=== PATIENT | female | born 1995 | race Caucasian/White ===

== ENCOUNTER 2016-06-19 21:34 | Emergency (ER) | payer BC ==
[~2016-06-19] VITALS: Ht 157.5 cm; Wt 61.0 kg
[2016-06-19 21:36] VITALS: BP 116/67; PULSE 77; RESP 16; TEMP 98.7; O2SAT 98
[2016-06-19] MEDS ORDERED: PROPARACAINE HCL 0.5% OPHT SOLN 15 ML BTL EACH EYE ONE (22:00)
[2016-06-19] MEDS ORDERED: NITR1CAP37 PO (22:07)
--- NOTE | 2016-06-19 22:10 | PD ---
HPI Chief Complaint: Eye Problems/Injury Time Seen by Provider: 21:58 Travel History International Travel<30 days: No Contact w/Intl Traveler<30days: No Traveled to known affect area: No History of Present Illness HPI 20-year-old female presents for evaluation of left eye discomfort. The patient reports that she wears contacts when she went to put her contacts in this morning left one felt like there is a scratch on it. She were to all day and began having increased pain, cloudiness and foreign body sensation in the left eye. She has since removed her contacts. No problems with the right eye. She does not wear contacts at night. She has no other complaints at this time. PFSH Past Medical History ?: Not LMP: LAST WEEK Social History Alcohol Use: Yes Tobacco Use: No Allergies-Medications (Allergen,Severity, Reaction): Coded Allergies: Sulfa (Verified Allergy, Intermediate, EDEMA AND HIVES, 06/19/16) Reported Meds & Prescriptions Reported Meds & Active Scripts Active Tylenol-Codeine #3 (Acetaminophen-Codeine) 300-30 mg Tab 1 Tab PO Q4H PRN Tobrex Opth Oint (Tobramycin Sulfate) 0.3 % Oint 1 Applic LEFT EYE QID 7 Days Reported Nitrofurantoin Macrocrystal 50 Mg Cap 50 Mg PO BID Review of Systems Eyes: Positive: Redness, Foreign Body Sensation, Pain, Tearing, Visual changes Physical Exam Narrative GENERAL: Well-developed well-nourished female in no acute distress SKIN: Warm and dry. HEAD: Atraumatic. Normocephalic. EYES: Pupils equal and round reactive to light extraocular muscles are intact. Mild conjunctival injection left eye. Slit lamp reveals faint corneal abrasion. There is no cell or flare in the anterior chamber. No hyphema, no hypopyon. The upper eyelid was everted and there is no evidence of retained foreign body. ENT: No nasal bleeding or discharge. Mucous membranes pink and moist. NECK: Trachea midline. No JVD. Data Data Last Documented VS Vital Signs Date Time Temp Pulse Resp B/P Pulse Ox O2 Delivery O2 Flow Rate FiO2 06/19/16 22:07 16 06/19/16 21:36 98.7 77 116/67 98 Room Air Orders Proparacaine 0.5% Opth Soln (Alcaine 0.5 (06/19/16 22:00) Proparacaine 0.5% Opth Soln (Alcaine 0.5 (06/19/16 22:15) Acetamin-Codeine 300-30 Mg (Tylenol-Code (06/19/16 22:45) Tobramycin 0.3% Opth Oint (Tobrex 0.3% O (06/19/16 22:45) MDM Medical Decision Making Medical Screen Exam Complete: Yes Emergency Medical Condition: Yes Medical Record Reviewed: Yes Differential Diagnosis Corneal abrasion, corneal ulceration, foreign body, iritis, acute glaucoma, endophthalmitis Narrative Course 20-year-old female presents with left eye pain and foreign body sensation and redness after wearing a contact that felt like it was scratched. Examination reveals very faint corneal abrasion, no evidence of iritis or ulceration or foreign body. The patient will be discharged with TobraDex ophthalmic solution as well as Tylenol with Codeine. Discussed signs and symptoms that would warrant return to the emergency room. Diagnosis Primary Impression: Corneal abrasion of left eye due to contact lens Additional Instructions: Medication as prescribed. Avoid contact use left eye for the next 5-7 days. Typically symptoms should resolve in 48-72 hours. If you develop worsening pain or visual problems after 2-3 days of treatment, return to the emergency room. Med/Other Pt SpecificInfo: Prescription(s) given Scripts Acetaminophen-Codeine (Tylenol-Codeine #3)300-30 mg Tab1 Tab PO Q4H PRN (PAIN) # 20 TAB Ref 0 Prov:Hector Nam MD 06/19/16 Tobramycin Opth Oint (Tobrex Opth Oint)0.3 % Oint1 Applic LEFT EYE QID 7 Days Ref 0 Prov:Hector Nam MD 06/19/16 Disposition: 01 DISCHARGE HOME Condition: Stable Primo Cordova Jun 19, 2016 22:10
[2016-06-19] MEDS ORDERED: PROPARACAINE HCL 0.5% OPHT SOLN 15 ML BTL LEFT EYE ONE (22:15)
[2016-06-19] MEDS ORDERED: TOBR.3%O LEFT EYE (22:37)
[2016-06-19] MEDS ORDERED: TYLETAB34 PO (22:37)
[2016-06-19] MEDS ORDERED: ACETAMINOPHEN/CODEINE 300 MG/30 MG TAB PO ONE (22:45)
[2016-06-19] MEDS ORDERED: TOBRAMYCIN SULFATE 0.3% OPTH OINT 3.5 GM TUBE EACH EYE ONE (22:45)
== END 2016-06-19 23:14 | disposition home or self-care (01) ==
LOC: NEPK 21:34
DX: S05.02XA Injury of conjunctiva and corneal abrasion without foreign body, left eye, initial encounter (principal); T15.02XA Foreign body in cornea, left eye, initial encounter; X58.XXXA Exposure to other specified factors, initial encounter; Y93.89 Activity, other specified; Y92.9 Unspecified place or not applicable; Y99.9 Unspecified external cause status
CPT/HCPCS: 99283